=== PATIENT | female | born 1960 | race Caucasian/White ===

== ENCOUNTER 2017-01-24 15:12 | Emergency (ER) | payer OTHER ==
[~2017-01-24] VITALS: Ht 157.5 cm; Wt 56.0 kg
--- NOTE | 2017-01-24 16:06 | PD ---
HPI Chief Complaint: Psychiatric Symptoms Time Seen by Provider: 15:48 Travel History International Travel<30 days: No Contact w/Intl Traveler<30days: No Traveled to known affect area: No History of Present Illness HPI This is a 56-year-old female who presents to the emergency department having been brought in under an ex parte. Reportedly her roommates filed the ex parte about her because they say that she broke into their room in the middle the night with a kitchen knife in her hand, and have the making false claims about them that they locked her out of the house. They say she is not sleeping and they suspect she has a mental illness. The patient reports that she's had a lot of contention with her roommates. She says they're trying to play tricks on her. She says they keep messing around with the thermostat, they've been stealing her things and rifling through her stuff. She just served with an eviction notice today prior to this ex parte being filed. The patient reports she has no history of mental illness. She denies any drug use. She's never been hospitalized psychiatrically. COUNTS INCLUDE 234 BEDS AT THE [facility] Past Medical History Narrative Medical Asthma ?: Not Social History Tobacco Use: Yes Allergies-Medications (Allergen,Severity, Reaction): Coded Allergies: No Known Allergies (Unverified , 01/24/17) Reported Meds & Prescriptions Reported Meds & Active Scripts Active No Active Prescriptions or Reported Medications Review of Systems Except as stated in HPI: all other systems reviewed are Neg Physical Exam Narrative GENERAL:Well appearing, no acute distress SKIN: Focused skin assessment warm and dry. HEAD: Atraumatic. Normocephalic. EYES: Pupils equal and round. No injection or drainage. ENT: Moist mucous membranes NECK: Trachea midline. CARDIOVASCULAR: Regular rate and rhythm. No murmur appreciated. RESPIRATORY: Clear to auscultation. Breath sounds equal bilaterally. GASTROINTESTINAL: Abdomen soft, non-tender, nondistended. MUSCULOSKELETAL: No obvious deformities. NEUROLOGICAL: Awake and alert. No obvious cranial nerve deficits. Moving all extremities. PSYCHIATRIC: Some paranoia and pressured speech, appears to have decision- making capacity, on my assessment does not appear to be a harm to herself or others Data Data Last Documented VS Vital Signs Date Time Temp Pulse Resp B/P Pulse Ox O2 Delivery O2 Flow Rate FiO2 01/24/17 15:40 16 Orders Complete Blood Count With Diff (01/24/17 15:48) Comprehensive Metabolic Panel (01/24/17 15:48) Psych Screen (01/24/17 15:48) Drug Screen, Random Urine (01/24/17 15:48) Alcohol (Ethanol) (01/24/17 15:48) MDM Medical Decision Making Medical Screen Exam Complete: Yes Emergency Medical Condition: Yes Differential Diagnosis Psychosis, bipolar disorder, inflammatory disorder, anali, substance intoxication, adjustment reaction Narrative Course This is a 56-year-old female who is under an ex parte that was filed by her roommates. The patient reports that she has been trying to evict her roommates and this is the precipitation for this document. The patient does exhibit some pressured speech on exam with some paranoia. On my assessment she does not appear to be a harm to herself or others. She has no active medical complaints. Patient will be evaluated by psychiatry Scripts No Active Prescriptions or Reported Meds Alesia Mack MD Jan 24, 2017 16:06
[2017-01-24 16:17] LABS: BASOPHIL # 0.1 TH/MM3 (0-0.2); BASOPHIL % 0.7 % (0.0-2.0); EOSINOPHIL # 0.1 TH/MM3 (0-0.4); EOSINOPHIL % 0.8 % (0.0-4.0); HEMATOCRIT 40.9 % (35.0-46.0); HEMO FLAGS DIFF FINAL; LYMPH % 27.2 % (9.0-44.0); LYMPHOCYTE # 3.1 TH/MM3 (1.0-4.8); MEAN CELL VOLUME 93.2 FL (80.0-100.0); MEAN CORPUSCULAR HEMOGLOBIN 31.9 PG (27.0-34.0); MEAN CORPUSCULAR HGB CONC 34.2 % (32.0-36.0); MONO % 10.5 % (0.0-8.0); NEUT % 60.8 % (16.0-70.0); PLATELET COUNT 331 TH/MM3 (150-450); RED CELL DISTRIBUTION WIDTH 13.5 % (11.6-17.2); WHITE BLOOD COUNT 11.5 TH/MM3 (4.0-11.0)
[2017-01-24 16:25] LABS: AMPHETAMINE, URINE NEG (NEG); BARBITURATES, URINE NEG (NEG); COCAINE, URINE NEG (NEG)
[2017-01-24 16:33] LABS: ALT (GPT) 21 U/L (10-53); ANION GAP 7 MEQ/L (5-15); AST (GOT) 10 U/L (15-37); BICARBONATE 26.7 MEQ/L (21.0-32.0); BLOOD UREA NITROGEN 11 MG/DL (7-18); CHLORIDE 108 MEQ/L (98-107); GLOMERULAR FILTRATION RATE 79 ML/MIN (>89); POTASSIUM 3.8 MEQ/L (3.5-5.1); SODIUM (NA) 142 MEQ/L (136-145)
[2017-01-24 16:35] LABS: ALKALINE PHOSPHATASE 76 U/L (45-117); TOTAL BILIRUBIN ADULT 0.3 MG/DL (0.2-1.0)
[2017-01-25 02:00] VITALS: BP 160/70; PULSE 66; RESP 18; O2SAT 98
[2017-01-25 06:25] VITALS: BP 173/79; PULSE 79; RESP 16; O2SAT 100
--- NOTE | 2017-01-25 11:15 | PD ---
History of Present Illness Chief Complaint: Psychiatric Symptoms Time Seen by Provider: 10:35 Travel History International Travel<30 Days: No Contact w/Intl Traveler<30days: No Known affected area: No Legal Status Legal Status: Ex Parte Zarate Act Signed By: FLUMER PANCHO Zarate Act Comment: EX PARTE IN AND FOR [facility] IN [facility] History of Present Illness: History of Present Illness HPI This is a 56-year-old female with no previous psychiatric history who presents to the emergency department having been brought in under an ex parte. The Ex Parte filed by her roommate of 6 months alleges that the patient has been forgetful, looses her keys, left her door open and left her dogs outside one day and that on the date the order was filed that she barged in with a kitchen knife in her hand. As per ED documentation included here " Reportedly her roommates filed the ex parte about her because they say that she broke into their room in the middle the night with a kitchen knife in her hand, and have the making false claims about them that they locked her out of the house. They say she is not sleeping and they suspect she has a mental illness. EMR is reviewed and this patient has had no previous contact with [facility] psychiatric dept. Her labwork is unremarkable and her toxicology is negative. The patient was monitored in J pod and she presented no behavioral concerns and no aggressive or agitated behavior. The patient this morning is alert and oriented female in [facility]. Hygiene and grooming are appropriate. She is engaging and cooperative. She appears anxious and is upset with being here. She tell me that she rented a room to a woman and her daughter 6 months ago and that she has been having problems with such roommates . She has requested that they leave her home but they have refused to do so and she has served them with an eviction letter. Patient continues to assert that the ex parte was in retaliation of her evicting them.There is no depressive symptomatology. Does not appear to be responding to internal stimuli. She denies any hallucinatory process. She is suspicious of her roommate and some of her behaviors but there is no overt paranoia and it could well be based on reality. Patient denies any history of aggressive behavior or assaultive behavior and has not demonstrated any behaviors indicative of such. Tells me she sleeps about 4 - 5 hours a night and has fair appetite . The patient has requested that I review her text messages in which she has requested that her roommate leave as well as the responses. In those text messages the patient does not make any threats to anyone. She is more concerned for her safety as she now does not know what else the roommate will attempt to do. She plans on going to the police for assistance after she is discharged. PFSH Past Medical History Medical History: Denies Significant Hx ?: Not Psychiatric History Psychiatric History Hx Psychiatric Treatment: DENIES any History of Inpatient Treatment: No Guns or firearms in home: Yes (In the care of her neighbor) Social History Born in [place]. Moved to [place] 6 years ago. x1 and currently . has no children. Lives in her home with a roommate and the roommate's daughter. Employed. Hx Alcohol Use: No Hx Tobacco Use: Yes Hx Substance Use: No Hx of Substance Use Treatment: No Family Psychiatric History None reported Allergies-Medications (Allergen,Severity, Reaction): Coded Allergies: No Known Allergies (Unverified , 01/24/17) Reported Meds & Prescriptions Reported Meds & Active Scripts Active No Active Prescriptions or Reported Medications Review of Systems Except as stated in HPI: all other systems reviewed are Neg Psychiatric: COMPLAINS OF: Anxiety Exam Alert: Yes [place]: Person (ox4) Mood: Anxious Affect: Appropriate Speech: Clear, Logical Eye Contact: Normal Memory Intact: Comment (no impairment) Hallucinations: Other (negative) Delusions: No Suicidal: Ideation (deneis any) Homicidal: Ideation (denies any) Insight/Judgement Fair . Not impaired. [facility] Medical Decision Making Medical Record Reviewed: Yes Assessment/Plan 56 year old female with no previous psychiatric history under an exparte. At this time and after reviewing all available clinical information it has been determined that this patient does not meet criteria for involuntary psychiatric hospitalization. She has presented no indiction that she may be an imminent risk to herself or anyone else. She will be discharged at this time. Orders Complete Blood Count With Diff (01/24/17 15:48) Comprehensive Metabolic Panel (01/24/17 15:48) Psych Screen (01/24/17 15:48) Drug Screen, Random Urine (01/24/17 15:48) Alcohol (Ethanol) (01/24/17 15:48) Diet Regular Basic (01/25/17 Breakfast) Diet Regular Basic (01/25/17 Lunch) Results Vital Signs Date Time Temp Pulse Resp B/P Pulse Ox O2 Delivery O2 Flow Rate FiO2 01/25/17 06:25 79 16 173/79 100 Room Air 01/25/17 02:00 66 18 160/70 98 Room Air 01/24/17 15:40 16 Laboratory Tests Test 01/24/17 14:00 White Blood Count 11.5 Red Blood Count 4.40 Hemoglobin 14.0 Hematocrit 40.9 Mean Corpuscular Volume 93.2 Mean Corpuscular Hemoglobin 31.9 Mean Corpuscular Hemoglobin 34.2 Concent Red Cell Distribution Width 13.5 Platelet Count 331 Mean Platelet Volume 8.2 Neutrophils (%) (Auto) 60.8 Lymphocytes (%) (Auto) 27.2 Monocytes (%) (Auto) 10.5 Eosinophils (%) (Auto) 0.8 Basophils (%) (Auto) 0.7 Neutrophils # (Auto) 7.0 Lymphocytes # (Auto) 3.1 Monocytes # (Auto) 1.2 Eosinophils # (Auto) 0.1 Basophils # (Auto) 0.1 CBC Comment DIFF FINAL Differential Comment Sodium Level 142 Potassium Level 3.8 Chloride Level 108 Carbon Dioxide Level 26.7 Anion Gap 7 Blood Urea Nitrogen 11 Creatinine 0.76 Estimat Glomerular Filtration 79 Rate Random Glucose 163 Calcium Level 9.7 Total Bilirubin 0.3 Aspartate Amino Transf 10 (AST/SGOT) Alanine Aminotransferase 21 (ALT/SGPT) Alkaline Phosphatase 76 Total Protein 7.9 Albumin 4.2 Urine Opiates Screen NEG Urine Barbiturates Screen NEG Urine Amphetamines Screen NEG Urine Benzodiazepines Screen NEG Urine Cocaine Screen NEG Urine Cannabinoids Screen NEG Ethyl Alcohol Level LESS THAN 3 Diagnosis Primary Impression: Adjustment disorder Psychiatrically Cleared: Yes Patient Instructions: General Instructions, Mood Disorders (ED) Additional Instructions: Follow up as needed with primary care clinic. Med/ Other Pt Specific Info: No Meds Exist/No RX given Prescriptions No Active Prescriptions or Reported Meds Disposition: 01 DISCHARGE HOME Condition: Stable Problem Qualifiers Primary Impression: Adjustment disorder Qualified Code: F43.22 - Adjustment disorder with anxious mood Nina Marcano Jan 25, 2017 11:15
== END 2017-01-25 11:57 | disposition home or self-care (01) ==
LOC: NEDAMB 15:12 → NEPJ 01-25 11:57
DX: F43.22 Adjustment disorder with anxiety (principal)
CPT/HCPCS: 80053; 80307; 85025; 99284